=== PATIENT | female | born 1985 | race Two or more races ===

== ENCOUNTER → 2016-10-16 22:35 | Emergency (ER) | payer OTHER ==
[2016-10-16 23:46] VITALS: BP 93/62
--- NOTE | 2016-10-19 16:10 | ED ---
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 She states the needle did not have contact with a person, but may have been in contact with chemicals. She states there is no way to know if there was contact with chemicals, and if so, which chemicals. She is denying any symptoms and is just concerned over the contact precautions. It was explained to the patient there are no specific tests for chemicals and only if she begins to feel altered, should there be cause for concern for further testing. She is denying all symptoms, but would like provider to check the wound to assure there is no FB present. - History of Current Complaint Chief Complaint: EDGeneral Time Seen by Provider: 10/16/16 23:01 Stated Complaint: LEG INJURY Hx Obtained From: Patient Onset/Duration: Started Minutes Ago Skin Exposure Onset/Duration: Minutes Ago Timing: Constant Onset Severity: Mild Current Severity: Mild Pain Intensity: 1 Pain Scale Used: 0-10 Numeric Skin Location: Discrete - right gluteus Aggravating Symptom(s): Nothing Alleviating Symptom(s): Nothing Associated Signs & Symptoms: Negative Related History: Foreign Body - Additional Pertinent History Oxygen Devices Used Prior to Hospitalization: None Recent Stress Test: No Have you ever had this problem before: No - Allergy/Home Medications Allergies/Adverse Reactions: Allergies Allergy/AdvReac Type Severity Reaction Status Date / Time No Known Allergies Allergy Verified 10/16/16 22:41 PMH/Surg Hx/FS Hx/Imm Hx Previously Healthy: Yes - Immunization History Hx Pertussis Vaccination: No Immunizations Up to Date: Yes Infectious Disease History: No Infectious Disease History: Denies: Traveled Outside the [place] in Last 30 Days - Family History Known Family History: Positive: Unknown - Social History Occupation: Employed Full-time Lives: With Family Alcohol Use: None Hx Substance Use: No Substance Use Type: Reports: None Hx Tobacco Use: No Smoking Status (MU): Never Smoked Tobacco Review of Systems Constitutional: Negative Eyes: Negative Cardiovascular: Negative Respiratory: Negative Positive: no symptoms reported, see HPI Positive: Other - small needle stick through the right gluteus Neurological: Negative Psychological: Normal All Other Systems Reviewed And Are Negative: Yes Physical Exam Triage Information Reviewed: Yes Vital Signs On Initial Exam: Initial Vitals Temp Pulse Resp BP Pulse Ox 98.2 F 75 20 101/75 100 10/16/16 22:36 10/16/16 22:36 10/16/16 22:36 10/16/16 22:36 10/16/16 22:36 Vital Signs Reviewed: Yes Appearance: Positive: Well-Appearing, Well-Nourished Skin: Positive: Warm, Skin Color Reflects Adequate Perfusion, Other - small needle stick through the right gluteus, no FB present currently Eyes: Positive: EOMI, Conjunctiva Clear Neck: Positive: Supple, No Lymphadenopathy Respiratory/Lung Sounds: Positive: Clear to Auscultation, Breath Sounds Present Cardiovascular: Positive: RRR, Pulses are Symmetrical in both Upper and Lower Extremities Musculoskeletal: Positive: Normal Neurological: Positive: Speech Normal Psychiatric: Positive: Normal AVPU Assessment: Alert Diagnostics - Vital Signs Vital Signs Temp Pulse Resp BP Pulse Ox 10/16/16 23:48 98.4 F 60 16 93/62 10/16/16 23:41 98.5 F 60 16 93/62 99 10/16/16 22:36 98.2 F 75 20 101/75 100 - Laboratory Lab Statement: Any lab studies that have been ordered have been reviewed, and results considered in the medical decision making process. Course/Dx - Course Course Of Treatment: Patient was explained about the limitations to testing d/t unknown possible chemical exposure from small needle found in the lab. Needle did not have contact with human fluid, as this lab is chemical only. Patient encouraged only to follow up or return to ED if she develops any symptoms or finds out if there was a specific chemical involved. Physical exam revealed no skin lesion or FB in the rigth gluteus where patient stated the FB was found. Patient understands and is OK for discharge. - Differential Diagnoses - Skin Complaint Differential Diagnoses: Foreign Body, Other - needle stick, laceration, avulsion , puncture wound - Diagnoses Provider Diagnoses: Foreign body Discharge - Discharge Plan Condition: Stable Disposition: HOME Patient Education Materials: Soft Tissue Foreign Body (ED) Referrals: Non Staff,Doctor [Primary Care Provider] - Additional Instructions: Follow up with your PCP.
== END | disposition home or self-care (01) ==
LOC: ED 22:35
DX: S31.813A Puncture wound without foreign body of right buttock, initial encounter (principal); W46.0XXA Contact with hypodermic needle, initial encounter; Y92.89 Other specified places as the place of occurrence of the external cause; Y99.0 Civilian activity done for income or pay
CPT/HCPCS: 99281